=== PATIENT | female | born 1955 | race Caucasian/White ===

== ENCOUNTER → 2019-12-24 14:30 | Outpatient (CLI) | payer OTHER, SELFPAY ==
--- NOTE | ~2019-12-24 | XR_ITS ---
EXAMINATION: XR chest 2V EXAM DATE: 12/24/2019 15:02 INDICATION: Shortness of breath. TECHNIQUE: Frontal and lateral projections of the chest obtained and reviewed. Comparison is made to prior examination from 05/04/2017. FINDINGS: The lungs are clear. There are no pleural effusions. The cardiomediastinal silhouette is within normal limits. There is no pneumothorax suspected. The bones and soft tissues are unremarkab le. IMPRESSION: No acute cardiopulmonary findings. Reviewed, dictated and finalized at location A. EFFICIENT AIRCRAFT DESIGNER
== END ==
PROVIDERS: PCP Family Medicine; Visit Provider Family Medicine
DX: R06.02 Shortness of breath (principal)
CPT/HCPCS: 71046

== ENCOUNTER 2020-04-15 00:30 | Outpatient (CLI) | payer OTHER, SELFPAY ==
[2020-04-15 17:31] LABS: SARS-CoV-2 RNA PCR Negative
== END 2020-04-15 00:31 | disposition home or self-care (01) ==
LOC: ANHCOVIDDT 00:30
PROVIDERS: PCP Family Medicine; Visit Provider Internal Medicine Gastroenterology
DX: Z01.812 Encounter for preprocedural laboratory examination (principal); Z20.828 Contact with and (suspected) exposure to other viral communicable diseases
CPT/HCPCS: 87635; C9803; U0003

== ENCOUNTER 2020-04-17 00:52 | Day surgery (SDC) | payer OTHER, SELFPAY ==
[2020-02-04 14:06] VITALS: BMI 37.8
[2020-04-09 14:41] VITALS: BMI 35.2
[2020-04-17 12:37] VITALS: BP 134/60; PULSE 64; RESP 20; TEMP 35.9; O2SAT 97
--- NOTE | 2020-04-17 12:45 | WPDANESEPPF ---
Anes - Initial Pre Proc Eval Procedure: Operation Date: 04/17/20 13:30 Proposed Procedures p Esophagogastroduodenoscopy - Fredy Brian MD Date/Time: 04/17/20 12:45 Surgeon: Fredy Brian MD Pre Op Diagnosis: dysphagia Patient Data Age: 65 Gender: F Height: 5 ft 5 in Weight: 102.1 kg Last Vital Signs Temp 35.9 C L 04/17/20 12:37 Pulse 64 04/17/20 12:37 Resp 20 04/17/20 12:37 BP 134/60 04/17/20 12:37 Pulse Ox 97 04/17/20 12:37 Allergies Allergy/AdvReac Type Severity Reaction Status Date / Time tetracycline AdvReac Unknown sick Verified 04/17/20 12:34 Home Medications Medication Instructions Recorded Confirmed Type metoprolol tartrate 100 mg tablet 100 mg PO Q12H #180 tablet 11/26/19 02/04/20 Rx celecoxib 200 mg capsule 200 mg PO DAILY #90 cap 12/12/19 02/04/20 Rx lisinopril 10 mg PO HS 02/04/20 02/04/20 History hydrochlorothiazide 25 mg tablet 25 mg PO DAILY 03/17/20 04/09/20 History simvastatin [Zocor] See Rx Instructions .ROUTE .COMPLEX 04/09/20 04/09/20 History Patient hx anesthesia problems: none Family hx anesthesia problems: none PMFSH Past Medical History Medical History Chronic renal insufficiency, stage III (moderate) Colon cancer screening Essential hypertension LBBB (left bundle branch block) Migraine Mixed hyperlipidemia Normal colonoscopy Personal history of colonic polyps Transient cerebral ischemia Surgical History Surgical History History of partial hysterectomy Family History Family History Sibling Diabetes mellitus Family history of throat cancer Mother Cerebrovascular accident Other Family history of alcoholism Family history of coronary artery disease Family history of malignant neoplasm Family history of malignant neoplasm of breast in first degree relative Family history of malignant neoplasm of uterus Hypertension Social History Social History Smoking status: Never smoker Second hand tobacco smoke exposure: No Alcohol intake: never Gender identity (if verbalized by the patient): Female Anes - Eval Final PreProcedure Day of Procedure 04/17/20 12:45 Patient weight: obese Heart: regular rate and rhythm Lungs: clear to auscultation Airway: Mallampati scale class II Neurological: alert and oriented Last oral intake: >/= 8 hours ASA classification: III Emergent: no Anesthetic plan: proceed Anesthesia type and monitoring: general GIVS and standard monitoring Informed Consent: The patient's anesthetic plan and its attendant risks and benefits were discussed with the patient/family/POA. Questions were solicited and answers provided to the satisfaction of the patient/family/POA.
[2020-04-17] MEDS: LACTATED RINGERS 1,000 ML 150 ML IV CONT (12:54)
--- NOTE | 2020-04-17 14:15 | PM.HPGS ---
History of Present Illness History of Present Illness Consent: Risks, benefits, and alternatives have been discussed and questions answered. Patient agrees to proceed with procedure. Chief complaint: dysphagia Narrative: Lashonda Hendricks is a 65 year old female here with dysphagia Review of Systems Constitutional: Constitutional: Denies headache(s) and Denies weakness Eyes: Eyes: Denies blurry vision ENT: Reports Normal hearing present, Denies headache(s) and Denies neck pain Cardiovascular: Cardiovascular: Denies chest pain and Denies dyspnea Respiratory: Respiratory: Denies dyspnea Gastrointestinal: Gastrointestinal: Reports no additional gastrointestinal complaints Genitourinary: Genitourinary: Denies dysuria Musculoskeletal: Musculoskeletal: Denies neck pain Integumentary/Breasts: Skin/Breast: Denies dry skin Neurologic: Reports Normal hearing present, Denies headache(s) and Denies weakness Psychiatric: Psychiatric: Denies anxiety Endocrine: Endocrine: Denies change in body appearance Hematologic/Lymphatic: Hematologic/Lymphatic: Denies easy bleeding Allergic/Immunologic: Allergic/Immunologic: Denies urticaria PMFSH Past Medical History Medical History Chronic renal insufficiency, stage III (moderate) Colon cancer screening Essential hypertension LBBB (left bundle branch block) Migraine Mixed hyperlipidemia Normal colonoscopy Personal history of colonic polyps Transient cerebral ischemia Surgical History Surgical History History of partial hysterectomy Family History Family History Sibling Diabetes mellitus Family history of throat cancer Mother Cerebrovascular accident Other Family history of alcoholism Family history of coronary artery disease Family history of malignant neoplasm Family history of malignant neoplasm of breast in first degree relative Family history of malignant neoplasm of uterus Hypertension Social History Social History Smoking status: Never smoker Second hand tobacco smoke exposure: No Alcohol intake: never Gender identity (if verbalized by the patient): Female Meds Home Medications and Allergies Home Medications Medication Instructions Recorded Confirmed Type metoprolol tartrate 100 mg tablet 100 mg PO Q12H #180 tablet 11/26/19 04/17/20 Rx celecoxib 200 mg capsule 200 mg PO DAILY #90 cap 12/12/19 04/17/20 Rx lisinopril 10 mg PO HS 03/16/20 05/28/20 History hydrochlorothiazide 25 mg tablet 25 mg PO DAILY 03/17/20 04/17/20 History simvastatin [Zocor] See Rx Instructions .ROUTE .COMPLEX 04/09/20 04/17/20 History Allergies Allergy/AdvReac Type Severity Reaction Status Date / Time tetracycline AdvReac Unknown sick Verified 04/17/20 12:34 Vital Signs Vital Signs - 24 hr 04/17/20 12:37 Temperature 96.7 F L Pulse Rate 64 Respiratory Rate 20 Blood Pressure 134/60 Pulse Oximetry 97 Exam Const: General: comfortable and no acute distress HENMT: General nose exam: Normal nares present Eyes: General: appearance normal, both eyes and all related structures Neck: Neck: no JVD Resp: Auscultation: clear to auscultation bilaterally Cardio: Rate: regular rate Rhythm: regular rhythm GI: Inspection: non-distended GI Palp: Yes Soft to palpation Skin: General skin exam: normal color Neuro: General: gait normal Speech: normal speech Extrem: General: normal to inspection Psych: Mental Status: mental status grossly normal Assessment and Plan Assessment and plan (1) Dysphagia: Code(s): R13.10 - Dysphagia, unspecified Status: Acute Assessment and Plan: egd with possible dilation
[2020-04-17] MEDS: BENZOCAINE (*SP) 60 ML SPRAY CAN (HURRICAINE) 1 SPRAY MUCOUS MEM (14:32)
[2020-04-17 14:50] VITALS: BP 123/70; PULSE 65; RESP 20; O2SAT 97
[2020-04-17 15:00] VITALS: BP 127/76; PULSE 65; RESP 17; O2SAT 98
[2020-04-17 15:10] VITALS: BP 137/74; PULSE 61; RESP 18; O2SAT 99
== END 2020-04-17 15:17 | disposition home or self-care (01) ==
PROVIDERS: PCP Family Medicine; Visit Provider Internal Medicine Gastroenterology
PROC: 0DJ08ZZ Inspection of Upper Intestinal Tract, Via Natural or Artificial Opening Endoscopic (ICD-10-PCS; CPT 43235; principal; 2020-04-17 13:30)
DX: R13.10 Dysphagia, unspecified (principal); K29.50 Unspecified chronic gastritis without bleeding; K20.8 Other esophagitis; I12.9 Hypertensive chronic kidney disease with stage 1 through stage 4 chronic kidney disease, or unspecified chronic kidney disease; N18.3 Chronic kidney disease, stage 3 (moderate); I44.7 Left bundle-branch block, unspecified; E78.2 Mixed hyperlipidemia; E66.9 Obesity, unspecified; Z68.37 Body mass index [BMI] 37.0-37.9, adult
CPT/HCPCS: 43239; 43248; 88305; J2704; J7120

== ENCOUNTER 2023-07-21 09:47 | Outpatient (CLI) | payer BC, SELFPAY ==
[2023-07-21 11:00] LABS: Influenza A QL RT-PCR Negative (Negative); Influenza B QL RT-PCR Negative (Negative); RSV RNA, RT-PCR Negative (Negative); SARS-CoV-2 RNA PCR Positive (Negative)
== END 2023-07-21 09:48 | disposition home or self-care (01) ==
PROVIDERS: PCP Family Medicine; Visit Provider Physician Assistant
DX: U07.1 COVID-19 (principal)
CPT/HCPCS: 87637

== ENCOUNTER 2023-10-24 16:05 | Outpatient (CLI) | payer BC, SELFPAY ==
[2023-10-24 17:05] LABS: Influenza A QL RT-PCR Negative (Negative); Influenza B QL RT-PCR Negative (Negative); RSV RNA, RT-PCR Negative (Negative); SARS-CoV-2 RNA PCR Negative (Negative)
== END 2023-10-24 16:06 | disposition home or self-care (01) ==
LOC: ANHLAB 16:07
PROVIDERS: PCP Family Medicine; Visit Provider Family Medicine
DX: J39.9 Disease of upper respiratory tract, unspecified (principal); Z20.822 Contact with and (suspected) exposure to COVID-19
CPT/HCPCS: 87637

== ENCOUNTER 2024-08-01 10:45 | Outpatient (RCR) | payer MEDICARE, SELFPAY ==
[2024-07-03 13:35] VITALS: BMI 39.0
[2024-07-03 13:36] VITALS: BMI 39.0
[2024-08-01 10:47] VITALS: BMI 38.0
[2024-08-01 10:54] VITALS: BMI 38.0
== END 2024-09-19 14:13 | disposition home or self-care (01) ==
LOC: ANHDMC 10:45
PROVIDERS: PCP Family Medicine; Visit Provider Family Medicine
DX: E11.9 Type 2 diabetes mellitus without complications (principal); Z71.3 Dietary counseling and surveillance
CPT/HCPCS: 97802; 97803

== ENCOUNTER 2024-10-03 10:34 | Outpatient (RCR) | payer MEDICARE, SELFPAY ==
[2024-10-03 10:45] VITALS: BMI 36.6
== END 2024-12-17 09:53 | disposition home or self-care (01) ==
LOC: ANHDMC 10:34
PROVIDERS: PCP Family Medicine; Visit Provider Family Medicine
DX: E11.9 Type 2 diabetes mellitus without complications (principal); Z71.3 Dietary counseling and surveillance
CPT/HCPCS: 97803

== ENCOUNTER 2024-11-01 11:58 | Outpatient (CLI) | payer MEDICARE, SELFPAY ==
--- NOTE | ~2024-11-01 | MR_ITS ---
EXAMINATION: MR shoulder RT wo con DATE: 11/01/2024 13:02 INDICATION: Right shoulder pain. TECHNIQUE: Magnetic resonance imaging (MRI) of the right shoulder was performed without intravenous c ontrast. Sequences included axial PD-weighted FS FSE, coronal oblique PD-weighted FS FSE and T2-weigh isabela FS FSE, and sagittal oblique T2-weighted FS FSE and T1-weighted FSE. COMPARISON: None. FINDINGS: Coracoacromial arch: The acromion undersurface is flat in morphology (type I). There is severe acromioclavicular joint ost eoarthritis. Subacromial spurring is noted. There is moderate subacromial/subdeltoid bursitis. Rotator cuff: There is a bursal-sided partial-thickness tear of supraspinatus tendon measuring 6 mm anterior to pos terior by 3 mm proximal to distal by 60% tendon thickness. There is mild infraspinatus tendinopathy. Teres minor tendon is normal. There is mild subscapularis tendinopathy. There is severe fatty atrophy of teres minor muscle belly. Biceps tendon and glenoid labrum: Biceps tendon is in bicipital groove. There is mild intra-articular biceps tendinopathy. There is deg eneration of superior glenoid labrum without well-defined tear. Fluid: There is a small glenohumeral joint effusion. Bones/cartilage: The glenoid cartilage is normal. Humeral head cartilage is normal. IMPRESSION: 1. Bursal-sided partial-thickness tear of supraspinatus tendon. 2. Severe acromioclavicular joint osteoarthritis. 3. Moderate subacromial/subdeltoid bursitis. 4. Mild intra-articular biceps tendinopathy. 5. Small glenohumeral joint effusion. 6. Severe fatty atrophy of teres minor muscle belly, consistent with quadrilateral space syndrome. Reviewed, dictated and finalized at location A. INE PACKAGING TECHNICIAN IMPRESSION: 1. Bursal-sided partial-thickness tear of supraspinatus tendon. 2. Severe acromioclavicular joint osteoarthritis. 3. Moderate subacromial/subdeltoid bursitis. 4. Mild intra-articular biceps tendinopathy. 5. Small glenohumeral joint effusion. 6. Severe fatty atrophy of teres minor muscle belly, consistent with quadrilate ral space syndrome.
== END 2024-11-01 11:59 | disposition home or self-care (01) ==
LOC: MICIMG 11:58
PROVIDERS: PCP Family Medicine; Visit Provider Family Medicine
DX: M75.111 Incomplete rotator cuff tear or rupture of right shoulder, not specified as traumatic (principal); M19.011 Primary osteoarthritis, right shoulder; M75.51 Bursitis of right shoulder; M75.21 Bicipital tendinitis, right shoulder; M25.411 Effusion, right shoulder; M62.511 Muscle wasting and atrophy, not elsewhere classified, right shoulder
CPT/HCPCS: 73221

== ENCOUNTER 2025-02-26 14:38 | Outpatient (RCR) | payer MEDICARE, SELFPAY ==
[2025-02-26 14:45] VITALS: BMI 35.2
[2025-02-26 14:47] VITALS: BMI 35.2
== END 2025-05-20 09:03 | disposition home or self-care (01) ==
LOC: ANHDMC 14:38
PROVIDERS: PCP Family Medicine; Visit Provider Family Medicine
DX: E11.9 Type 2 diabetes mellitus without complications (principal); Z71.3 Dietary counseling and surveillance
CPT/HCPCS: 97803

== ENCOUNTER 2025-04-03 10:54 | Outpatient (CLI) | payer MEDICARE, SELFPAY ==
--- NOTE | 2025-04-03 11:03 | ECG_ITS ---
Test Date: 2025-04-03 11:15:38 Measurements Intervals [place] Rate: 58 P: 75 ME: 216 QRS: -44 QRSD: 157 T: 68 QT: 462 QTc: 456 Interpretive Statements SINUS BRADYCARDIA WITH FIRST DEGREE AV BLOCK MARKED LEFT AXIS DEVIATION [QRS AXIS < -30] LEFT BUNDLE BRANCH BLOCK [120+ ms QRS DURATION, 80+ ms Q/S IN V1/V2, 85+ ms R IN I/aVL/V5/V6] WARNING: DATA QUALITY MAY AFFECT INTERPRETATION No previous ECG available for comparison Electronically Signed On 04-03-2025 12:00:32 CDT by David Salcedo M.D.
--- OUTSIDE RECORDS SUMMARY | 2025-04-03 11:14 | XMS_ITS | Clinical Summary ---
Author Organization [facility] Address [address] [place] [address] Care Team Providers Care Commercial Loan Reviewer Name Role Phone Haley Stokes MD Primary Care Provider [phone] Medications No known medications Encounters Date Type Department Care Team Description 01/08/2025 External Device Data [facility] ABSTRACTION Provider, Abstract from Last 3 Months Family History Medical History Relation Name Comments Breast Cancer Mother 70s Relation Name Status Comments Mother Social History Tobacco Use Types Packs/Day Years Used Date Smoking Tobacco: Never Assessed Comments Unknown Sex and Gender Information Value Date Recorded Sex Assigned at Not on file Legal Sex Female 9:56 PM CDT Gender Identity Not on file Sexual Orientation Not on file Last Filed Vital Signs Vital Sign Reading Time Taken Comments Blood Pressure 120/68 01/18/2024 2:13 PM MERCHANDISING COORDINATOR Pulse 71 01/18/2024 2:13 PM MERCHANDISING COORDINATOR Temperature - - Respiratory Rate 18 01/18/2024 2:13 PM MERCHANDISING COORDINATOR Oxygen Saturation 97% 01/18/2024 2:13 PM MERCHANDISING COORDINATOR Inhaled Oxygen Concentration - - Weight - - Height - - Body Mass Index - - Plan of Treatment Health Maintenance Due Date Last Done Comments DTAP/TDAP/TD VACCINES (1 - Tdap) 1976 FIT-DNA Q 3 years 2002 FIT/FOBT Q 1 year 2002 Flex Sig/CT Colonography Q 5 years 2002 PNEUMOCOCCAL VACCINE 50+ YEA RS (1 of 1 - PCV) 2007 ZOSTER VACCINE (1 of 2) 2007 OSTEOPOROSIS SCREENING 2022 COLORECTAL SCREENING 11/20/2022 11/20/2012 Colorectal Cancer Screening 11/20/2022 INFLUENZA VACCINE (#1) 2024 BREAST CANCER SCREENING 01/13/2025 01/13/20 24, 12/15/2023, 10/12/2021, Additional history exists RSV VACCINE (60+ or ) (1 - 1-dose 75+ series) 2032 Medical Devices Implanted Type Area Shoe Parts Molder Device Identifier Shelf Expiration Date Model / Serial / Lot Clip-01/18/2024 Implanted:Qty: 1 on 01/18/2024 by Darryl Peña MD Clip Right: Breast 11/17/2026 [id number] / / [id number] Description:ribbon marker Procedures Procedure Name Priority Date/Time Associated Diagnosis Comments MAMMO 3D NEGRITO DIAGNOSTIC BILAT W OR WO CAD Routine 01/13/2024 2:10 PM MERCHANDISING COORDINATOR Abnormal mammogram from Last 3 Months or Most Recently Relevant to Health Maintenance Results * (ABNORMAL) MAMMO 3D NEGRITO DIAGNOSTIC BILAT W OR WO CAD (01/13/2024 2:10 PM MERCHANDISING COORDINATOR) Anatomical Region Laterality Modality Breast Bilateral Mammography 01/13/2024 2:10 PM MERCHANDISING COORDINATOR Impressions 01/13/2024 3:36 PM MERCHANDISING COORDINATOR IMPRESSION: Small cysts in the left breast at 6:00. Hypoechoic area that appears to be connected to a duct in the right breast at 12:00. RECOMMENDATIONS: Ultrasound-guided aspiration with possible biopsy right breast. DICTATION LOCATION: [facility], [place], [facility] Narrative 01/13/2024 3:36 PM MERCHANDISING COORDINATOR EXAM: BILATERAL DIAGNOSTIC FULL-FIELD DIGITAL MAMMOGRAPHY WITH CAD WITH 3D TOMOSYNTHESIS AND BILATERAL FOCUSED ULTRASOUND DATE: 01/13/2024 2:10 PM HISTORY: Abnormal screening mammogram. TECHNIQUE: Spot tomographic and lateral imaging both breasts with focused ultrasound. COMPARISON: 2023, 2020, 2018 BREAST COMPOSITION: There are scattered areas of fibroglandular density. FINDINGS: With additional spot tomographic imaging on the right, a fairly well-circumscribed mass is seen on the mediolateral projection. Focused ultrasound shows a hypoechoic area that is at 12:00 and appears to be connected to a duct. There is no definite internal blood flow. Possibility of mass growing inside the duct needs to be excluded. In the left breast, well-circumscribed masses are present that with real-time imaging are felt to be small cysts. No solid mass. OVERALL FINAL ASSESSMENT: BI-RADS CATEGORY 4A: Suspicious Findings (Low suspicion). Procedure Note Darryl Peña MD - 01/13/2024 EXAM: BILATERAL DIAGNOSTIC FULL-FIELD DIGITAL MAMMOGRAPHY WITH CAD WITH 3D TOMOSYNTHESIS AND BILATERAL FOCUSED ULTRASOUND DATE: 01/13/2024 2:10 PM HISTORY: Abnormal screening mammogram. TECHNIQUE: Spot tomographic and lateral imaging both breasts with focused ultrasound. COMPARISON: 2023, 2020, 2018 BREAST COMPOSITION: There are scattered areas of fibroglandular density. FINDINGS: With additional spot tomographic imaging on the right, a fairly well-circumscribed mass is seen on the mediolateral projection. Focused ultrasound shows a hypoechoic area that is at 12:00 and appears to be connected to a duct. There is no definite internal blood flow. Possibility of mass growing inside the duct needs to be excluded. In the left breast, well-circumscribed masses are present that with real-time imaging are felt to be small cysts. No solid mass. OVERALL FINAL ASSESSMENT: BI-RADS CATEGORY 4A: Suspicious Findings (Low suspicion). IMPRESSION: Small cysts in the left breast at 6:00. Hypoechoic area that appears to be connected to a duct in the right breast at 12:00. RECOMMENDATIONS: Ultrasound-guided aspiration with possible biopsy right breast. DICTATION LOCATION: [facility], [place], [facility] Haley Stokes MD MAMMO ORDERABLES Final Result from Last 3 Months or Most Recently Relevant to Health Maintenance Insurance [employer] PPO [facility] Care Teams Commercial Loan Reviewer Relationship Specialty Start Date End Date Haley Stokes MD [address] [place] [id number] PCP - General Family Practice 02/02/19
--- OUTSIDE RECORDS SUMMARY | 2025-04-03 11:14 | XMS_ITS | Clinical Summary ---
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 Gender Identity Not on file Sexual Orientation Not on file Obstetrics History Last Filed Vital Signs Vital Sign Reading Time Taken Comments Blood Pressure 100/68 05/13/2017 11:21 AM CDT Pulse - - Temperature - - Respiratory Rate - - Oxygen Saturation - - Inhaled Oxygen Concentration - - Weight 99.8 kg (220 lb) 05/13/2017 11:21 AM CDT Height 165.1 cm (5' 5 ) 05/13/2017 11:21 AM CDT Body Mass Index 36.61 05/13/2017 11:21 AM CDT Plan of Treatment Not on file Insurance [place] [employer] [place] Care Teams Plate Glass Grinder Relationship Specialty Start Date End Date Haley Stokes MD PCP - General 02/14/13
--- OUTSIDE RECORDS SUMMARY | 2025-04-03 11:14 | XMS_ITS | Referral Summary ---
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
[2025-04-03 13:10] LABS: Anion Gap 10 mmol/L (4-12); Blood Urea Nitrogen 31 mg/dL (7-17); Calcium 9.6 mg/dL (8.4-10.2); Carbon Dioxide 31 mmol/L (22-30); Chloride 100 mmol/L (98-107); Estimated Glomerular Filt Rate 52; Glucose 92 mg/dL (65-110); Potassium 3.4 mmol/L (3.4-5.0); Sodium 141 mmol/L (137-145)
[2025-04-03 13:11] LABS: Partial Thromboplastin Time 28.1 Seconds (22.3-36.8); Prothrombin Time 13.2 Seconds (11.1-14.7)
== END 2025-04-03 10:55 | disposition home or self-care (01) ==
PROVIDERS: Anesthesiology; PCP Family Medicine; Visit Provider Orthopaedic Surgery
DX: R94.31 Abnormal electrocardiogram [ECG] [EKG] (principal); I12.9 Hypertensive chronic kidney disease with stage 1 through stage 4 chronic kidney disease, or unspecified chronic kidney disease; N18.30 Chronic kidney disease, stage 3 unspecified; Z51.81 Encounter for therapeutic drug level monitoring
CPT/HCPCS: 36415; 80048; 85610; 85730; 93005

== ENCOUNTER 2025-05-22 08:43 | Outpatient (CLI) | payer MEDICARE, SELFPAY ==
--- NOTE | ~2025-05-22 | NM_ITS ---
EXAMINATION: NM marisela stress w perfusion DATE: 05/22/2025 13:09 INDICATION: Preoperative evaluation TECHNIQUE: Rest images were obtained following intravenous administration of 10.4 mCi Tc99m tetrofosm in (Myoview). The patient was infused intravenously with Lexiscan (Regadenoson). Then, 32.3 mCi Tc99m tetrofosmin (Myoview) was administered intravenously, and stress images were obtained, initially in the supine position with repeat post stress images obtained in the prone position. Data was reconstru cted into short axis and horizontal and vertical long axis SPECT images. Gated SPECT images were also obtained. COMPARISON: None. FINDINGS: There is a fixed mild perfusion defect consistent with infarct involving the apical septal and anteroseptal segments and small portion of the mid inferoseptal segments. No definitive reversibl e ischemia. There is normal left ventricular chamber size, wall motion and ejection fraction. Left v entricular ejection fraction measures >70%. IMPRESSION: 1. Mild infarct involving the apical septal, mid anteroseptal and small portion of the mid inferior s eptal segments. No definitive reversible ischemia. 2. Left ventricular ejection fraction measuring >70%. Reviewed, dictated and finalized at location A. IMPRESSION: 1. Mild infarct involving the apical septal, mid anteroseptal and small portion of the mid inferior septal segments. No definitive reversible ischemia. 2. Left ventricular ejection fraction measuring >70%.
--- OUTSIDE RECORDS SUMMARY | 2025-05-22 08:47 | XMS_ITS | Clinical Summary ---
Author Organization [facility] [place] [address] Address [address] [place] [address] Care Team Providers Care Judge'S Clerk Name Role Phone Haley Stokes MD Primary Care Provider [phone] Social History Tobacco Use Types Packs/Day Years Used Date Smoking Tobacco: Never Assessed Alcohol Use Standard Drinks/Week Comments Yes 0 (1 standard drink = 0.6 oz pur e alcohol) Comments Unknown Sex and Gender Information Value Date Recorded Sex Assigned at Not on file Legal Sex Female 1:[address] Gender Identity Not on file Sexual Orientation Not on file Obstetrics History Last Filed Vital Signs Vital Sign Reading Time Taken Comments Blood Pressure 100/68 05/13/2017 11:21 AM CDT Pulse - - Temperature - - Respiratory Rate - - Oxygen Saturation - - Inhaled Oxygen Concentration - - Weight 99.8 kg (220 lb) 05/13/2017 11:21 AM CDT Height 165.1 cm (5' 5) 05/13/2017 11:21 AM CDT Body Mass Index 36.61 05/13/2017 11:21 AM CDT Plan of Treatment Not on file Insurance [employer] [place] Care Teams Judge'S Clerk Relationship Specialty Start Date End Date Haley Stokes MD PCP - General 02/14/13
--- OUTSIDE RECORDS SUMMARY | 2025-05-22 08:47 | XMS_ITS | Clinical Summary ---
Author Organization [facility] Address [address] [place] [address] Care Team Providers Care Drink Waiter Name Role Phone Haley Stokes MD Primary Care Provider [phone] Medications No known medications Family History Medical History Relation Name Comments [...] Comments Blood Pressure 120/68 01/18/2024 2:13 PM [facility] Pulse 71 01/18/2024 2:13 PM [facility] Temperature - - Respiratory Rate 18 01/18/2024 2:13 PM [facility] Oxygen Saturation 97% 01/18/2024 2:13 PM [facility] Inhaled Oxygen Concentration - - Weight - [...] SCREENING 11/20/2022 11/20/2012 Colorectal Cancer Screening 11/20/2022 BREAST CANCER SCREENING 01/13/2025 01/13/20 24, 12/15/2023, 10/12/2021, Additional history exists INFLUENZA VACCINE (#1) 2025 RSV VACCINE (60+ or ) (1 - 1-dose 75+ series) 2032 Medical Devices Implanted Type Area Executive Director Sheltered Workshop Device Identifier Shelf Expiration Date Model / Serial / Lot Clip-01/18/2024 Implanted:Qty: 1 on 01/18/2024 by Darryl Peña MD Clip Right: Breast 11/17/2026 [id number] / / [id number] Description:ribbon marker Procedures Procedure Name Priority Date/Time Associated Diagnosis Comments MAMMO 3D NEGRITO DIAGNOSTIC BILAT W OR WO CAD Routine 01/13/2024 2:10 PM [facility] Abnormal mammogram from Last 3 Months or Most Recently Relevant to Health Maintenance Results * (ABNORMAL) MAMMO 3D NEGRITO DIAGNOSTIC BILAT W OR WO CAD (01/13/2024 2:10 PM [facility]) Anatomical Region Laterality Modality Breast Bilateral Mammography 01/13/2024 2:10 PM [facility] Impressions 01/13/2024 3:36 PM [facility] IMPRESSION: Small cysts in the left breast at 6:00. Hypoechoic area that appears to be connected to a duct in the right breast at 12:00. RECOMMENDATIONS: Ultrasound-guided aspiration with possible biopsy right breast. DICTATION LOCATION: [facility] Narrative 01/13/2024 3:36 PM [facility]PEDOMAN[facility]S MATE EXAM: BILATERAL DIAGNOSTIC FULL-FIELD DIGITAL MAMMOGRAPHY WITH [...] with possible biopsy right breast. DICTATION LOCATION: [facility] us Haley Stokes MD MAMMO ORDERABLES Final Result from Last 3 Months or Most Recently Relevant to Health Maintenance Insurance [employer] P[id number] Care Teams Drink Waiter Relationship Specialty Start Date End Date Haley Stokes MD [address] [place] [address] PCP - General Family Practice 02/02/19
--- OUTSIDE RECORDS SUMMARY | 2025-05-22 08:47 | XMS_ITS | Data Portability ---
Author Organization [facility], Main Office Address [address] [place] [address] Assessment No assessment recorded. Plan of Treatment Reminders Order Date Submit Date Provider Last Modified By Organization Details Last Modified Time Details Appointments None record ed. Lab None record ed. Referral None record ed. Procedures None record ed. Surgeries None record ed. Imaging None record ed. Medication Orders None record ed. Patient TargetsNo targets recorded. Patient Instructions Encounter Date Encounter Id Patient Instructions Last Modified By Organization Details Last Modified Time 01/05/2023 [id number] She will follow up with me only as needed. On today's visit I spent a total of 40 minutes prepping for her visit (reviewing shared records), [id number] with her and documenting. [email or web address] Not available 02/11/2023 16:43:53 Reason for Referral None Reported. Problems Name Problem SNOMED Code Status Onset Date Resolution Date Notes Provider Name and Address Organization Details Recorded Time Hyperlipid emia 00127562 Active 2022 Poornima Lange MD [address] [place] [address],[address], [address] [place] [address] [facility] 3 16:42:17 Essential hypertensi on 84215738 Active 2022 Poornima Lange MD [address] [place] [address],[facility] [address], [place], [address] [place] [address] [facility] 3 16:42:30 Screening for malignant neoplasm of colon Active 2022 Poornima Lange MD [address] [place] [address],[address], [place], [address], [facility] [place] 3 16:42:41 External hemorrhoid s 81898797 Active 2022 Poornima Lange MD [address] [place] [address],[address], [place], [address], [facility] [place] 3 16:42:55 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 Procedures Surgical History Date Name Laterality Status Provider Name and Address Organization Details Recorded Time 01/05/20 Anoscopy completed Poornima Lange MD [address] [place] [address],[address], [place], [address], [facility] 02/11/2023 16:33:57 02/20/20 19 Date of Last Mammogram completed basia wilson [facility] 01/05/2023 13:39:05 11/21/19 13 Colonoscopy completed Poornima Lange MD [address] [place] [address],[address], [place], [address], [facility] 02/11/2023 16:29:11 11/21/18 91 combined anteroposterior colporrhaphy completed Poornima Lange MD [address] [place] [address],[address], [place], [address], [facility] [place] 02/11/2023 16:29:43 11/21/18 91 total hysterectomy via vaginal approach completed Poornima Lange MD [address] [facility],[address], [place], [address], [facility] [place] 02/11/2023 16:31:01 Imaging Results None recorded. Procedure Notes None recorded. Medical Equipment None Reported. Allergies Allergen ID Allergen Name Allergen Category Reaction Reaction Severity Criticality Documentation Date Start Date Code Code System Note Provider Name and Address Organization Details Recorded Time 7387 tetracycl ine medicatio n Not available Not available Not available 01/05/2023 65986 RxNorm basianeetu wilson [facility], [facility] [place] 13:09:23 Medications Name Sig Start Date Stop Date Status Note LastModified by Organization Details LastModified Time celecoxib 200 mg capsule active Not Available Not Available Not Available ofloxacin 0.3 % eye drops 1 DROP 3 TIMES PER DAY STARTING 2 DAYS PRIOR TO SURGERY, CONTINUIN G FOR 1 WEEK AFTER SURGERY. 02/11 completed Not Available Not Available Not Available metoprolol tartrate 100 mg tablet active Not Available Not Available Not Available cephalexin 250 mg capsule TAKE 1 CAPSULE BY MOUTH EVERY 8 HOURS FOR 7 DAYS 02/11 completed Not Available Not Available Not Available ketorolac 0.5 % eye drops USE 1 DROP 4 TIMES PER DAY STARTING 2 DAYS PRIOR TO SURGERY, CONTINUIN G FOR 2 WEEKS AFTER SURGERY 02/11 completed Not Available Not Available Not Available prednisolon e acetate 1 % eye drops,suspe nsion 1 DROP 3 TIMES PER DAY STARTING AFTER SURGERY, CONTINUIN G FOR 3 WEEKS 02/11 completed Not Available Not Available Not Available simvastatin 20 mg tablet active Not Available Not Available Not Available lisinopril 10 mg tablet active Not Available Not Available Not Available hydrochloro thiazide 25 mg tablet active Not Available Not Available No t Available albuterol sulfate HFA 90 mcg/actuati on aerosol inhaler INHALE 1 PUFFS BY MOUTH EVERY 4 HOURS NEEDED FOR FOR SHORTNESS OF BREATH OR WHEEZING active Not Available Not Available No t Available Pramosone 2.5 %-1 % lotion APPLY TOPICALLY THREE TIMES A DAY ALLOW AT LEAST 3 HOURS BETWEEN APPLICATI ONS active Not Available Not Available No t Available Vitals None Recorded Social History Question Answer Notes LastModified by Organizat ion Details LastModified Time Do You Have An Advance Directive? Yes Information not available 01/05/2023 Alcohol Use Yes Information n ot available 01/05/2023 Alcohol Amount Occasional Informatio n not available 01/05/2023 Caffeine Use Yes Information not available 01/05/2023 Caffeine Type Coffee-tea Information not available 01/05/2023 Caffeine Amount 1-2 Day Informati on not available 01/05/2023 Illicit Drug Use No Information not available 01/05/2023 What Was The Date Of Your Most Recent Tobacco Screening? 01/05/2023 Information not available 01/05/2023 Sex: Female Functional Status Question Answer Note LastModified by Organization D etails LastModified Time Do you or have you ever used any other forms of tobacco or nicotine? No Information not available 01/05/2023 Mental Status None recorded. Family History Relationship Description Onset Age of this Age Resolved Age Notes LastModified by Organization Details LastModified Time Father Primary malignant neoplasm of pharynx 40 Not available 2022 13:34:26 Father Hypertensive disorder 60 Not available 2022 13:34:38 Father Cerebrovascu lar accident 65 Not available 13:34:58 Mother Malignant neoplasm of female breast 65 Not available 2022 13:34:22 Mother Cerebrovascu lar accident 72 72 Not available 13:34:58 Mother Crohn's disease 50 Not available 2022 13:35:44 Sister Diabetes mellitus 40 Not available 2022 13:35:11 Medical History Condition Response Headaches/Migraines Y High Cholesterol Y Arthritis/Gout Y Cataracts Y Hypertension Y Gynecological History Statement/Question Response Number of Pregnancies? 1 Tear or Laceration During Delivery? Y Could You Be or Are You Currently Pregna nt? N Number of Vaginal Deliveries? 1 Date of Last Mammogram 02/19/2019 Accidental Bowel Leakage Post Delivery? N Episiotomy During Delivery? N Date of Last Pap Smear Obstetrics History GPAL:G 0 P 0 0 0 0 Past Encounters Encounter ID Performer Location Encounter Start Date Encounter Closed Date Diagnosis/Indication Diagnosis SNOMED-CT Code Diagnosis ICD10 Code Diagnosis Note [id number] Poornima Lange MD Main Office [address] [place] [address] 01/05/2023 12:25:07 01/05/2023 13:54:04 Pile easily reducible 769100208 K64.1 I discussed hemorrhoid s in general with her as well as the treatment options. She now understand s that any non-surgic al procedure (infrared coagulatio n or banding) would be done on her internal hemorrhoid s. I d/w her that her internals are not large enough to treat and given that they lie low in the anal canal it would be difficult to treat them without hurting her. Female pel kirsten floor dysfunction 044246559 M99.05 I d/w her that she has very poor resting muscle tone with a weak squeeze. I offered a referral to physical therapy but she declined. I offered a referral to a C&R surgeon but she declined. I advised she should do Kegel exercises as often and best as she can. She has already had an A&P repair in 1990. She of course needs to be eating a high fiber diet and drinking plenty of water. I advised that she start very low dose psyllium (start with 1/4 tsp daily) and SLOWLY increase to try to bulk up her BM's. I advised she is shooting for daily BM's that are soft ([place] Scale type 4). Once she figures out what dose works for her she should take it daily and forever. External hemorrhoids 239 [address] K64.4 She now understand s the only way to directly treat external hemorrhoid s/skin tags would be with a surgical excision. She does not wish to pursue this and her hemorrhoid s are not bad enough to warrant surgery. I advised she should consistent ly use the moist baby wipes. She can use the prescripti on cream if she needs to for discomfort . Screening for malignant neoplasm of colon 446934489 Z12.11 She is aware that she is due for a c-scope and states she will get this scheduled through her PCP. Essential hypertension 93211183 I10 She takes her medication and follows routinely with her PCP. Hyperlipidemia 58327166 E78.5 She takes her medication and follows routinely with her PCP. Health Concerns Section Related Observation LastModified by Organization Detai ls LastModified Time None Recorded Concern Status LastModified by Organization Details LastModified Time None Recorded Advance Directives Directive Y: Payers Insurance Date Sequence Insurance Name Policy Number Policy Costello Covered Member ID Costello Member ID Guarantor Name 02/11/2023 1 [place] [id number] Neetu Hendricks [id number] Lashonda Hendricks Notes Date Note Type Note Provider Name and Address Organization Details Recorded Time 01/05/2023 text/html This is a pleasa nt 68 year old woman who has had minor symptoms from her hemorrhoids on and off for many years. She states these have never bothered her to the point that she would have ever sought treatment. In early November she had an episode of sudden external anal pain and swelling. This lasted for about 4 - 5 weeks but she has been much better for the last 1 - 2 weeks. She still has a little more discomfort than is usual for her. Bleeding: She has had some BRB on the wipe with a BM during this recent flare. She has never had heavy bleeding or leakage of blood in between BM's. Pain: Only as above. She has never had a similar painful flare. Itching: She had some itching and irritation during the flare. This has improved. Discharge: It is always hard to get clean after BM's because of swelling and irritation. She tries to consistently use the moist wipes. She does not have difficulty staying clean - she does not have to re-wipe. She has no drainage. Prolapse: Not that she feels or has to manually reduce. External swelling: Only as above. Discomfort: She does have persistent pressure that is worse than prior to this recent flare. Previous Hemorrhoid Treatment: She was seen at her PCP's office on 11/30/22 and given a prescription for pramoxine/hydrocor tisone cream and this did help. She has never previously had a prescription for her hemorrhoids. She has never had a procedure done. Previous Lower GI Endoscopy: She states she has had 2 negative c-scopes and her last one was about 10 years ago. She states she is going to get a repeat done soon. I do not have access to her c-scope reports. Bowel Habits: She has had long standing every 1 - 2 day BM's that are soft to somewhat loose with just her dietary fiber. She did try taking some fiber gummies with this recent flare but it caused a significant amount of gas and bloating so she stopped them. Poornima Lange MD [address] [facility],[address], [place], [address], [facility] 02/11/2023 16:46:27 OBGyn Episode No OBEpisode recorded.
--- OUTSIDE RECORDS SUMMARY | 2025-05-22 08:47 | XMS_ITS | Referral Summary ---
Author Organization [facility] [address] Address [address] [place] [address] Care Team Providers Care Layboy Operator Name Role Phone Haley Stokes MD Primary Care Provider [phone] Social History Tobacco Use Types Packs/Day Years Used Date Smoking Tobacco: Never Assessed Alcohol Use Standard Drinks/Week Comments Yes 0 (1 standard drink = 0.6 oz pur e alcohol) Comments Unknown Sex and Gender Information Value Date Recorded Sex Assigned at Not on file Legal Sex Female 1:26 AM DIRECTOR GRAPHICS Gender Identity Not on file Sexual Orientation [...] Plan of Treatment Not on file Insurance [employer] original products [place] Care Teams Layboy Operator Relationship Specialty Start Date End Date Haley Stokes MD PCP - General 02/14/13
--- NOTE | 2025-05-22 08:48 | EST_ITS ---
Patient Info Name: Lashonda Hendricks Age: 70 years : 1955 Gender: Female Ht: 65 in Wt: 197 lbs BSA: 2.06 m2 HR: 69 bpm BP: 139 / 78 mmHg Exam Date: 05/22/2025 8:48 AM Patient Status: O Admit Date: 05/22/2025 Exam Type: CA stress marisela w NM A regadenoson stress test was performed. Staff Referring Physician: Osmany Butler DO Attending Provider: Osmany Butler DO Exercise Technologist: Helen Snow Summary 1. 1. Inconclusive lexiscan stress test for ischemic ST changes by ECG criteria due to baseline LBBB. 2. 2. Stable hemodynamics throughout the test. 3. 3. Nuclear scan to follow and will be reported separately. Please correlate with it. 4. 4. Patient informed of the above results. Protocol: Lexiscan Stress ECG Details Stage: REST Duration (min): 0 min : 57 sec HR (bpm): 70 SBP (mmHg): 139 DBP (mmHg): 78 Stage: REST Duration (min): 10 min : 9 sec HR (bpm): 71 SBP (mmHg): 139 DBP (mmHg): 78 Stage: STAGE 1 Duration (min): 0 min : 59 sec HR (bpm): 94 SBP (mmHg): 133 DBP (mmHg): 64 Stage: RECOVERY Duration (min): 1 min : 0 sec HR (bpm): 100 SBP (mmHg): 133 DBP (mmHg): 64 Stage: RECOVERY Duration (min): 2 min : 0 sec HR (bpm): 101 SBP (mmHg): 133 DBP (mmHg): 64 Stage: RECOVERY Duration (min): 3 min : 0 sec HR (bpm): 93 SBP (mmHg): 142 DBP (mmHg): 64 Stage: RECOVERY Duration (min): 4 min : 0 sec HR (bpm): 88 SBP (mmHg): 142 DBP (mmHg): 64 Stage: RECOVERY Duration (min): 5 min : 0 sec HR (bpm): 84 SBP (mmHg): 138 DBP (mmHg): 62 Stage: RECOVERY Duration (min): 5 min : 2 sec HR (bpm): 85 SBP (mmHg): 138 DBP (mmHg): 62 Rest HR: 71 bpm Peak HR: 101 bpm Rest Sys BP: 139 mmHg Peak Sys BP: 142 mmHg Max Pred HR: 152 bpm % Max Pred HR: 66 % Target HR: 129 bpm Max RPP: 14,342 bpm*mmHg Termination Reason: Completed protocol Cardiac Symptoms: Shortness of breath, Headache, dizziness Total Time: 1 min : 0 sec Rest Mendoza BP: 78 mmHg Peak Mendoza BP: 64 mmHg Total Dose: 0.4 mg Resting ECG Sinus rhythm, LBBB. Stress ECG No ST changes. Arrhythmias None. Report Signatures
--- NOTE | 2025-05-22 09:12 | ECHO_ITS ---
Patient Info Name: Lashonda Hendricks Age: 70 years : 1955 Gender: Female Ht: 65 in Wt: 197 lbs BSA: 2.06 m2 HR: 58 bpm BP: 145 / 88 mmHg Technical Quality: Good Exam Date: 05/22/2025 9:18 AM Patient Status: O Admit Date: 05/22/2025 Exam Type: CA echo dop color flow w con Complete two-dimensional, color flow and Doppler transthoracic echocardiogram is performed with contrast to opacify the left ventricle and to improve the deliniation of the left ventricle endocardial borders. Staff Referring Physician: Osmany Butler DO Spanner Operator: Erica Looney Attending Provider: Osmany Butler DO Contrast/Agitated Saline Contrast/Ag. Saline: Definity Amount: 2.00 ml Administered By: Erica Looney Existing IV Access: Yes IV Access Condition: patent with no signs of infiltration Summary 1. Definity contrast administered improved wall motion interpretation. 2. Left ventricular chamber dimension is normal. 3. Left ventricular systolic function is normal, estimated at 55-60. 4. Left ventricular septal wall motion is abnormal with septal motion related to bundle branch block. 5. The left ventricular diastolic function is grade I diastolic dysfunction. 6. There is mild aortic valve sclerosis. 7. There is mild to moderate mitral valve regurgitation. 8. There is trace tricuspid valve regurgitation. 9. No pulmonary hypertension, estimated pulmonary arterial systolic pressure is 25 mmHg. Left Ventricle Definity contrast administered improved wall motion interpretation. Left ventricular chamber dimension is normal. Left ventricular systolic function is normal, estimated at 55-60. Left ventricular septal wall motion is abnormal with septal motion related to bundle branch block. The left ventricular diastolic function is grade I diastolic dysfunction. E/e' 11 is mildly elevated. Right Ventricle Right ventricular chamber dimension is normal. Right ventricular systolic function is normal. Left Atria Left atrial chamber dimension is normal. Right Atria Right atrial chamber dimension is normal. Aortic Valve The aortic valve is trileaflet. There is mild aortic valve sclerosis. There is no aortic valve stenosis. There is no aortic valve regurgitation. Pulmonic Valve There is no pulmonic regurgitation. Mitral Valve There is no mitral valve stenosis. There is mild to moderate mitral valve regurgitation. Tricuspid Valve There is trace tricuspid valve regurgitation. No pulmonary hypertension, estimated pulmonary arterial systolic pressure is 25 mmHg. Pericardium/Pleural There is no pericardial effusion. Inferior Vena Cava Normal inferior vena cava with >50% collapse upon inspiration consistent with normal right atrial pressure, 5 mmHg. Aorta The aortic root size at the sinus of Valsalva is normal. Left Ventricular Outflow Tract Name Value Normal LVOT 2D LVOT Diameter 2.0 cm LVOT Doppler LVOT Peak Velocity 113 cm/s LVOT Peak Gradient 5 mmHg LVOT Mean Gradient 3 mmHg LVOT VTI 27 cm LVOT Stroke Volume 82 ml LVOT CO 4.7 l/min LVOT CI 2.3 l/min/m2 Pulmonic Valve Name Value Normal RVOT Doppler RVOT Peak Velocity 72 cm/s RVOT Peak Gradient 2 mmHg PV Doppler PV Peak Velocity 112 cm/s PV Peak Gradient 5 mmHg Mitral Valve Name Value Normal MV Diastolic Function MV E Peak Velocity 75 cm/s MV A Peak Velocity 101 cm/s MV E/A 0.7 MV Decel Time (PW) 261 ms MV Annular TDI MV E/e' (Septal) 12.1 MV E/e' (Lateral) 10.3 MV E/e' (Average) 11.2 Tricuspid Valve Name Value Normal TV Regurgitation Doppler TR Peak Velocity 226 cm/s TR Peak Gradient 20 mmHg Estimated PAP/RSVP RA Pressure 5 mmHg <=5 PA Systolic Pressure 25 mmHg <36 RV Systolic Pressure 25 mmHg <36 Aortic Valve Name Value Normal AV Doppler AV Peak Velocity 185 cm/s AV Peak Gradient 14 mmHg AV Area (Cont Eq Matthew) 1.9 cm2 AV DI (Matthew) 0.61 AV Regurgitation 2D LVOT Area 3.1 cm2 Ventricles Name Value Normal LV Dimensions 2D/MM IVS Diastolic Thickness (2D) 1.0 cm 0.6-1.0 LVID Diastole (2D) 4.6 cm 3.8-5.2 LVIW Diastolic Thickness (2D) 1.1 cm 0.6-0.9 LVID Systole (2D) 3.7 cm 2.2-3.5 LVOT Diameter 2.0 cm LV Mass (2D Cubed) 173.47 g 67.00-162.00 LV Mass Index (2D Cubed) 84 g/m2 43-95 Relative Wall Thickness (2D) 0.49 <=0.42 LV Fractional Shortening/Ejection Fraction 2D/MM LV Fractional Shortening (2D) 21 % 27-45 LV EF (2D Teichholz) 43 % LV Diastolic Volume (4C MOD) 109 ml LV EF (4C MOD) 63 % LV Diastolic Volume (2C MOD) 113 ml LV EF (2C MOD) 67 % LV Diastolic Volume (BP MOD) 111 ml 46-106 LV Diastolic Volume Index (BP MOD) 54 ml/m2 29-61 LV Systolic Volume (BP MOD) 39 ml 14-42 LV Systolic Volume Index (BP MOD) 19 ml/m2 8-24 LV EF (BP MOD) 65 % 54-74 LV Diastolic Length (4C) 8.5 cm LV Systolic Length (4C) 7.1 cm LV Stroke Volume (4C MOD) 69 ml Atria Name Value Normal LA Dimensions LA Volume (4C A-L) 18 ml LA Volume (BP A-L) 25 ml RA Dimensions RA Systolic Major [place] Length (4C) 5.2 cm 2.2-2.8 RA Area (4C) 16.4 cm2 <=18.0 Report Signatures
[2025-05-22] MEDS: PERFLUTREN LIPID MICROSPHERES 1.5 ML VIAL DILUTED TO 10 ML TOTAL VOLUME IV PUSH (11:45)
--- NOTE | 2025-05-22 12:04 | IVDEFINITY ---
Prior to administration of IV Definity the patient was educated on the risks and benefits of the imaging enhancing agent including potential adverse side effects. The patient verbalized understanding. Allergies were verified. No exclusion criteria were identified and at least one of the following inclusion criteria were met: 1) physician request, 2) patient technically difficult to image (per the [place] [employer]chocardi[employer] guidelines of two or more segments not discernable within the apical view), or 3) questionable left ventricular function. ?
== END 2025-05-22 08:44 | disposition home or self-care (01) ==
PROVIDERS: PCP Family Medicine; Visit Provider Internal Medicine Cardiovascular Disease
DX: Z01.810 Encounter for preprocedural cardiovascular examination (principal); I21.29 ST elevation (STEMI) myocardial infarction involving other sites
CPT/HCPCS: 78452; 93017; A9502; C8929; J2785; Q9957

== ENCOUNTER 2025-06-04 09:15 | Outpatient (CLI) | payer MEDICARE, SELFPAY ==
--- OUTSIDE RECORDS SUMMARY | 2025-06-04 09:32 | XMS_ITS | Referral Summary ---
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
--- OUTSIDE RECORDS SUMMARY | 2025-06-04 09:32 | XMS_ITS | Clinical Summary ---
Author Organization [facility] [address] Address [address] [place] [address] Care Team Providers Care Drain Tiler Name Role Phone Haley Stokes MD Primary Care Provider [phone] Social History Tobacco Use Types Packs/Day Years Used Date Smoking Tobacco: Never Assessed Alcohol Use Standard Drinks/Week Comments Yes 0 (1 standard drink = 0.6 oz pur e alcohol) Comments Unknown Sex and Gender Information Value Date Recorded Sex Assigned at Not on file Legal Sex Female 1:[address] TELLER Gender Identity Not on file Sexual Orientation [...] Plan of Treatment Not on file Insurance [place] [employer] [place] Care Teams Drain Tiler Relationship Specialty Start Date End Date Haley Stokes MD PCP - General 02/14/13
--- OUTSIDE RECORDS SUMMARY | 2025-06-04 09:32 | XMS_ITS | Clinical Summary ---
Author Organization [employer] [place] Address [address] [place] [address] Care Team Providers Care Pet Adoption Counselor Name Role Phone Haley Stokes MD Primary Care Provider [phone] Medications No known medications Encounters Date Type Department Care Team Description 05/23/2025 Transcribe Orders Central Test Scheduling [address] [place] [address] Haley Stokes MD Asymptomatic menopausal state (Primary Dx) 05/23/2025 Transcribe Orders Central Test Scheduling [address] [place] [address] Haley Stokes MD Visit for screening mammogram (Primary Dx) 05/23/2025 Transcribe Orders Central Test Scheduling [address] [place] [address] Haley Stokes MD Visit for screening mammogram (Primary Dx) from Last 3 Months Family History Medical [...] Comments Blood Pressure 120/68 01/18/2024 2:13 PM DIRECTOR COMPLIANCE Pulse 71 01/18/2024 2:13 PM DIRECTOR COMPLIANCE Temperature - - Respiratory Rate 18 01/18/2024 2:13 PM DIRECTOR COMPLIANCE Oxygen Saturation 97% 01/18/2024 2:13 PM DIRECTOR COMPLIANCE Inhaled Oxygen Concentration - - Weight - - Height - - Body Mass Index - - Plan of Treatment Upcoming Encounters Date Type Department Care Team (Late st Contact Info) Description 06/05/2025 3:00 PM CDT Hospital Encounter [facility] [address] [place] [address] Haley Stokes MD [address] [place] [address] 06/05/2025 4:[address] [facility] [address] [place] [address] Haley Stokes MD [address] [place] [address] Health Maintenance Due Date Last Done Comments DTAP/TDAP/TD VACCINES (1 - Tdap) 1976 FIT-DNA Q 3 years 2002 FIT/FOBT Q 1 year 2002 Flex Sig/CT Colonography Q 5 years 2002 PNEUMOCOCCAL VACCINE 50+ YEA RS (1 of 1 - PCV) 2007 ZOSTER VACCINE (1 of 2) 2007 OSTEOPOROSIS SCREENING 2022 COLORECTAL SCREENING 11/20/2022 11/20/2012 Colorectal Cancer Screening 11/20/2022 [place]age ([place]) Preventative Visit/Annual Wellness Visit 11/21/2024 BREAST CANCER SCREENING 01/13/2025 01/13/20 24, 12/15/2023, 10/12/2021, Additional history exists INFLUENZA VACCINE (#1) 2025 RSV VACCINE (60+ or ) (1 - 1-dose 75+ series) 2032 Medical Devices Implanted Type Area Dough Mixer Operator Device Identifier Shelf Expiration Date Model / Serial / Lot Clip-01/18/2024 Implanted:Qty: 1 on 01/18/2024 by Darryl Peña MD Clip Right: Breast 11/17/2026 [id number] / / [id number] Description:ribbon marker Procedures Procedure Name Priority Date/Time Associated Diagnosis Comments MAMMO 3D NEGRITO DIAGNOSTIC BILAT W OR WO CAD Routine 01/13/2024 2:10 PM DIRECTOR COMPLIANCE Abnormal mammogram from Last 3 Months or Most Recently Relevant to Health Maintenance Results * (ABNORMAL) MAMMO 3D NEGRITO DIAGNOSTIC BILAT W OR WO CAD (01/13/2024 2:10 PM DIRECTOR COMPLIANCE) Anatomical Region Laterality Modality Breast Bilateral Mammography 01/13/2024 2:10 PM DIRECTOR COMPLIANCE Impressions 01/13/2024 3:36 PM DIRECTOR COMPLIANCE IMPRESSION: Small cysts in the left breast at 6:00. Hypoechoic area that appears to be connected to a duct in the right breast at 12:00. RECOMMENDATIONS: Ultrasound-guided aspiration with possible biopsy right breast. DICTATION LOCATION: [facility] Narrative 01/13/2024 3:36 PM DIRECTOR COMPLIANCE EXAM: BILATERAL DIAGNOSTIC FULL-FIELD DIGITAL MAMMOGRAPHY WITH CAD WITH 3D TOMOSYNTHESIS AND BILATERAL FOCUSED ULTRASOUND DATE: 01/13/2024 2:10 PM HISTORY: Abnormal screening mammogram. TECHNIQUE: Spot tomographic and lateral imaging both breasts with focused ultrasound. COMPARISON: 2023, 2018 BREAST COMPOSITION: There are scattered areas [...] imaging both breasts with focused ultrasound. COMPARISON: 2018 BREAST COMPOSITION: There are scattered areas [...] with possible biopsy right breast. DICTATION LOCATION: [facility] us Haley Stokes MD MAMMO ORDERABLES Final Result from Last 3 Months or Most Recently Relevant to Health Maintenance Insurance [employer] PPO MCR Care Teams Pet Adoption Counselor Relationship Specialty Start Date End Date Haley Stokes MD [facility] [place] [address] PCP - General Family Practice 02/02/19
[2025-06-04 10:04] LABS: INR 1.0; Prothrombin Time 13.5 Seconds (11.1-14.7)
[2025-06-04 10:05] LABS: Partial Thromboplastin Time 28.4 Seconds (22.3-36.8)
[2025-06-04 12:15] LABS: Anion Gap 9 mmol/L (4-12); Blood Urea Nitrogen 32 mg/dL (7-17); Calcium 9.7 mg/dL (8.4-10.2); Carbon Dioxide 31 mmol/L (22-30); Chloride 99 mmol/L (98-107); Estimated Glomerular Filt Rate 52; Glucose 109 mg/dL (65-110); Potassium 3.4 mmol/L (3.4-5.0); Sodium 139 mmol/L (137-145)
== END 2025-06-04 09:16 | disposition home or self-care (01) ==
LOC: ANHSURGERY 09:18
PROVIDERS: Anesthesiology; PCP Family Medicine; Visit Provider Orthopaedic Surgery
DX: E11.22 Type 2 diabetes mellitus with diabetic chronic kidney disease (principal); N18.30 Chronic kidney disease, stage 3 unspecified
CPT/HCPCS: 36415; 80048; 85610; 85730

== ENCOUNTER 2025-06-10 00:53 | Day surgery (SDC) | payer MEDICARE, SELFPAY ==
[2025-04-01 14:05] VITALS: BMI 33.3
--- NOTE | 2025-04-01 14:41 | PC.NURSE ---
Addendum entered by Nia Melendez RN 06/03/25 11:10: Pt called and no changes in status , had her PREOP Clearance done and is now reset for below date and times, went over instructions again w pt and questions answered. Preop Testing to be repeated due to dates Pt instructions now as below- REVISED- Report to the Outpatient Waiting Room, entrance under the green pavilion located off [facility], at time ___12:30PM____ on date ___06/10/25____. Planned Procedure Time: ___2:30PM .? Time changes happen often and if your time is changed the preop area will call you the afternoon before. - You and your visitor will be asked to self-screen and do not enter if you have any COVID symptoms. Please call surgeon if you need to reschedule. - A mask is optional within the hospital at this time. Patients may have clear liquids (water, carbonated beverages, clear teas, apple juice) until 3 hours prior to surgery (11:30AM) with a maximum of 20 ounces. - No food from midnight until time of surgery and no smoking, or chewing tobacco (or any form of nicotine). No chewing gum, candy or mints. Take only the following medications with a SIP of water on the morning of surgery: ____METOPROLOL. MAY USE ALBUTEROL INHALER NEEDED. DO NOT STOP ANY OF YOUR OTHER PRESCRIPTION MEDICATIONS PRIOR TO SURGERY EXCEPT THE FOLLOWING Hold all vitamins and supplements for 3 days per anesthesiologist. Date of last dose is 06/06/25 Medications to discontinue per physician ____HOLD IBUPROFEN, MOTRIN, EXCEDRIN, ASPIRIN CONTAINING PRODUCTS (ALL NSAIDS EXCEPT CELEBREX) 7 DAYS PRE-OP PER DR MATIAS Date to take last dose 06/01/25 Original Note: Report to the Outpatient Waiting Room, entrance under the green pavilion located off [facility], at time ___12:00PM____ on date ___04/12/25____. Planned Procedure Time: ___2:00PM .? Time changes happen often and if your time is changed the preop area will call you the afternoon before. - You and your visitor will be asked to self-screen and do not enter if you have any COVID symptoms. Please call surgeon if you need to reschedule. - A mask is optional within the hospital at this time. Patients may have clear liquids (water, carbonated beverages, clear teas, apple juice) until 3 hours prior to surgery (11:00AM) with a maximum of 20 ounces. - No food from midnight until time of surgery and no smoking, or chewing tobacco (or any form of nicotine). No chewing gum, candy or mints. Take only the following medications with a SIP of water on the morning of surgery: ____METOPROLOL. MAY USE ALBUTEROL INHALER NEEDED. DO NOT STOP ANY OF YOUR OTHER PRESCRIPTION MEDICATIONS PRIOR TO SURGERY EXCEPT THE FOLLOWING Hold all vitamins and supplements for 3 days per anesthesiologist. Medications to discontinue per physician ____HOLD IBUPROFEN(ALL NSAIDS EXCEPT CELEBREX) 7 DAYS PRE-OP PER DR MATIAS Date to take last dose 04/04/25 Please no make-up, nail yakut, hairspray, perfume, deodorant, or body powder the day of surgery.? No jewelry (including any body piercings) or valuables the day of surgery, leave them at home.? Please take a shower or bath the night before, or the morning of, surgery with an antibacterial soap.? Wear comfortable, loose fitting clothing.? - Jewelry must be removed prior to entering the operating room.? Rings and piercings that are not removed may be cut off. - The hospital will not accept responsibility for valuables.? - Please leave all valuables, including medications, at home the day of surgery. If you are going home after surgery, a licensed taxicab driver must drive you home.? - NO public transportation without another adult if you receive anesthesia. - We recommend that an adult stay with you for 24 hours following discharge. - We also recommend that you do not drive, make important decision, drink alcoholic beverages, or take any drugs that were not prescribed by your health care provider for at least 24 hours after your discharge time. Follow any additional instructions given to you from your surgeon. Telephone instructions given to ____PATIENT and asked if any additional questions and then verbalized understanding. Patient advised to call surgeon office or pre surgery nurse liaison [phone] if any additional questions.
[2025-06-03 10:58] VITALS: BMI 33.3
[2025-06-10] VITALS (8 sets, daily range): BP systolic 103–155; BP diastolic 51–82; PULSE 56–65; RESP 12–20; TEMP 36.4–36.5; O2SAT 94–97
--- OUTSIDE RECORDS SUMMARY | 2025-06-10 00:56 | XMS_ITS | Clinical Summary ---
Author Organization [facility] Address [address] [facility] [place] [address] Care Team Providers Care Manager Front Name Role Phone Haley Stokes MD Primary Care Provider [phone] Medications No known medications Encounters Date Type Department Care Team Description 06/05/2025 3:01 PM CDT - 06/05/2025 11:59 PM CDT Hospital Encounter [facility] [address] [place] [address] [address] [place] [address] Haley Stokes MD Discharge Disposition: Home or Self Care 06/05/2025 3:00 PM CDT - 06/05/2025 11:59 PM CDT Hospital Encounter [facility] [address] [place] [address] Haley Stokes MD Discharge Disposition: Home or Self Care 05/23/2025 Transcribe Orders Central Test Scheduling [address] [place] [address] Haley Stokes MD Asymptomatic menopausal state (Primary Dx) 05/23/2025 Transcribe Orders Central Test Scheduling [address] [place] [address] Haley Stokes MD Visit for screening mammogram (Primary Dx) 05/23/2025 Transcribe Orders Central Test Scheduling [address] [place] [address] Haley Stokes MD Visit for screening mammogram [...] Comments Blood Pressure 120/68 01/18/2024 2:13 PM PIPELINE ENGINEER Pulse 71 01/18/2024 2:13 PM PIPELINE ENGINEER Temperature - - Respiratory Rate 18 01/18/2024 2:13 PM PIPELINE ENGINEER Oxygen Saturation 97% 01/18/2024 2:13 PM PIPELINE ENGINEER Inhaled Oxygen Concentration - - Weight - [...] 2007 ZOSTER VACCINE (1 of 2) 2007 COLORECTAL SCREENING 11/21/2022 11/21/2012, 11/20/20 Colorectal Cancer Screening 11/21/2022 [place] Preventative Visit/Annual Wellness Visit 11/21/2024 INFLUENZA VACCINE (#1) 2025 BREAST CANCER SCREENING 06/05/2026 06/05/20 25, 01/13/2024, 12/15/2023, Additional history exists OSTEOPOROSIS SCREENING 06/05/2030 06/05/2025 RSV VACCINE (60+ or ) (1 - 1-dose 75+ series) 2032 Medical Devices Implanted Type Area Hansard Reporter Device Identifier Shelf Expiration Date Model / Serial / Lot Clip-01/18/2024 Implanted:Qty: 1 on 01/18/2024 by Darryl Peña MD Clip Right: Breast 11/17/2026 [id number] / / [id number] Description:ribbon marker Procedures Procedure Name Priority Date/Time Associated Diagnosis Comments XR DEXA BONE DENSITY AXIAL 1 OR MORE SITES Routine 06/05/2025 4:00 PM CDT Asymptomatic menopausal state MAMMO 3D NEGRITO SCREEN BILAT W OR WO CAD Routine 06/05/2025 3:29 PM CDT Visit for screening mammogram from Last 3 Months Results * XR DEXA BONE DENSITY AXIAL 1 OR MORE SITES (06/05/2025 4:00 PM CDT) Anatomical Region Laterality Modality Computed Radiogr aphy 06/05/2025 4:00 PM CDT Impressions 06/05/2025 4:40 PM CDT FINDINGS/IMPRESSION: Normal bone density with a lowest T score of -0.4, previously 0.1. Fracture risk is low. FRAX: 10 year probability of major osteoporotic fracture is 6.8 %. 10 year probability of hip fracture is 0.4 %. Please refer to the full report available in [facility] under the PACS Images tab. If a faxed copy is needed, please call [phone]. DICTATION LOCATION: [facility] Narrative 06/05/2025 4:40 PM CDT EXAMINATION: XR DEXA BONE DENSITY AXIAL 1 OR MORE SITES DATE: 06/05/2025 4:00 PM INDICATION: Postmenopausal Procedure Note Familia Ruffin MD - 06/05/2025 EXAMINATION: XR DEXA BONE DENSITY AXIAL 1 OR MORE SITES DATE: 06/05/2025 4:00 PM INDICATION: Postmenopausal FINDINGS/IMPRESSION: Normal bone density with a lowest T score of -0.4, previously 0.1. Fracture risk is low. FRAX: 10 year probability of major osteoporotic fracture is 6.8 %. 10 year probability of hip fracture is 0.4 %. Please refer to the full report available in [facility] under the PACS Images tab. If a faxed copy is needed, please call [phone]. DICTATION LOCATION: [facility] Haley Stokes MD DIAGNOSTIC IMAGING ORDERABLES Fi nal Result * MAMMO 3D NEGRITO SCREEN BILAT W OR WO CAD (06/05/2025 3:29 PM CDT) Anatomical Region Laterality Modality Breast Bilateral Mammography 06/05/2025 3:29 PM CDT Impressions 06/05/2025 4:22 PM CDT IMPRESSION: Left breast focal asymmetry and calcifications RECOMMENDATIONS: Left breast diagnostic mammogram with spot compression and spot magnification views. DICTATION LOCATION: [facility] Narrative 06/05/2025 4:22 PM CDT MAMMO 3D NEGRITO SCREEN BILAT W OR WO CAD DATE: 06/05/2025 3:29 PM HISTORY: Routine screening. TECHNIQUE: Full-field digital craniocaudal and mediolateral oblique projections of both breasts were obtained. Low-dose full-field digital breast tomosynthesis examination was performed with 3D acquisitions. Examination is read in conjunction with computer aided detection. COMPARISON: Prior mammograms dating back to 09/22/2021 BREAST COMPOSITION: The breasts are heterogeneously dense, which may obscure small masses. FINDINGS: There is a focal asymmetry with calcifications in the upper outer left breast middle depth. There is no new suspicious abnormality in the right breast. OVERALL FINAL ASSESSMENT: BI-RADS CATEGORY 0: Incomplete, need additional imaging evaluation. Haley Stokes MD MAMMO ORDERABLES Final Result from Last 3 Months Insurance [facility] PPO MCR Care Teams Manager Front Relationship Specialty Start Date End Date Haley Stokes MD [address] [place] [address] PCP - General Family Practice 02/02/19
--- OUTSIDE RECORDS SUMMARY | 2025-06-10 00:56 | XMS_ITS | Referral Summary ---
Author Organization [facility] [address] Address [address] [place] [address] Care Team Providers Care Biology Lecturer Name Role Phone Haley Stokes MD Primary Care Provider [phone] Social History Tobacco Use Types Packs/Day Years Used Date Smoking Tobacco: Never Assessed Alcohol Use Standard Drinks/Week Comments Yes 0 (1 standard drink = 0.6 oz pur e alcohol) Comments Unknown Sex and Gender Information Value Date Recorded Sex Assigned at Not on file Legal Sex Female 1:26 AM DIRECTOR RADIO NEWS Gender Identity Not on file Sexual Orientation [...] Plan of Treatment Not on file Insurance [employer] [place] Care Teams Biology Lecturer Relationship Specialty Start Date End Date Haley Stokes MD PCP - General 02/14/13
--- OUTSIDE RECORDS SUMMARY | 2025-06-10 00:56 | XMS_ITS | Clinical Summary ---
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
--- OUTSIDE RECORDS SUMMARY | 2025-06-10 00:56 | XMS_ITS | Data Portability ---
Author Organization [facility], Main Office Address [address] [place] [address] Assessment No assessment recorded. Plan of Treatment [...] By Organization Details Last Modified Time 01/05/2023 [id number] She will follow up with me only as needed. On today's visit I spent a total of 40 minutes prepping for her visit (reviewing shared records), [id number] with her and documenting. [email or web address] Not available 02/11/2023 16:43:53 Reason for Referral None Reported. Problems Name Problem SNOMED Code Status Onset Date Resolution Date Notes Provider Name and Address Organization Details Recorded Time Hyperlipid emia 83847089 Active 2022 Poornima Lange MD [address] [place] [address],[address], [address] [place] [address] [facility] 3 16:42:17 Essential hypertensi on 83440180 Active 2022 Poornima Lange MD [address] [place] [address],[facility] [address], [place], [address] [place] [address] [facility] 3 16:42:30 Screening for malignant neoplasm of colon Active 2022 Poornima Lange MD [address] [place] [address],[address], [place], [address], [facility] 3 16:42:41 External hemorrhoid s 95700561 Active 2022 Poornima Lange MD [address] [place] [address],[address], [place], [address], [facility] 3 16:42:55 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 Procedures Surgical History Date Name Laterality Status Provider Name and Address Organization Details Recorded Time 01/05/20 Anoscopy completed Poornima Lange MD [address] [place] [address],[address], [place], [address], [facility] 02/11/2023 16:33:57 02/20/20 19 Date of Last Mammogram completed basia wilson [facility] 01/05/2023 13:39:05 11/21/19 13 Colonoscopy completed Poornima Lange MD [address] [place] [address],[address], [place], [address], [facility] 02/11/2023 16:29:11 11/21/18 91 combined anteroposterior colporrhaphy completed Poornima Lange MD [address] [place] [address],[address], [place], [address], [facility] 02/11/2023 16:29:43 11/21/18 91 total hysterectomy via vaginal approach completed Poornima Lange MD [address] [facility],[address], [place], [address], [facility] 02/11/2023 16:31:01 Imaging Results None recorded. Procedure Notes None recorded. Medical Equipment None Reported. Allergies Allergen ID Allergen Name Allergen Category Reaction Reaction Severity Criticality Documentation Date Start Date Code Code System Note Provider Name and Address Organization Details Recorded Time 7387 tetracycl ine medicatio n Not available Not available Not available 01/05/2023 13062 RxNorm basianeetu [facility], [facility] [place] 13:09:23 Medications Name Sig Start Date Stop [...] available 2022 13:35:11 Medical History Condition Response Arthritis/Gout Y Headaches/Migraines Y Cataracts Y High Cholesterol Y Hypertension Y Gynecological History Statement/Question Response [...] SNOMED-CT Code Diagnosis ICD10 Code Diagnosis Note [id number] Poornima Lange MD Main Office [address] [place] [address] 01/05/2023 12:25:07 01/05/2023 13:54:04 Pile easily reducible [id number] K64.1 I discussed hemorrhoid s in general [...] hurting her. Female pel kirsten floor dysfunction [id number] M99.05 I d/w her that she has [...] shooting for daily BM's that are soft (Barnard Scale type 4). Once she figures out what dose works for her she should take it daily and forever. External hemorrhoids [id number] [address]115 K64.4 She now understand s the only [...] . Screening for malignant neoplasm of colon 758282186 Z12.11 She is aware that she is due for a c-scope and states she will get this scheduled through her PCP. Essential hypertension [id number] I10 She takes her medication and follows routinely with her PCP. Hyperlipidemia 36042208 E78.5 She takes her medication and follows routinely with her PCP. Health Concerns Section Related Observation LastModified by Organization Detai ls LastModified Time None Recorded Concern Status LastModified by Organization Details LastModified Time None Recorded Advance Directives Directive Y: Payers Insurance Date Sequence Insurance Name Policy Number Policy Costello Covered Member ID Costello Member ID Guarantor Name 02/11/2023 1 [place] [id number] Neetu Hendricks [id number] Lashonda Hendricks Notes Date Note Type [...] she stopped them. Poornima Lange MD [address] [facility],[address], [place], [address], [facility] 02/11/2023 16:46:27 OBGyn Episode No OBEpisode recorded.
[2025-06-10] MEDS: KETOROLAC 15 MG/ML VIAL (*BKC) IV PUSH (13:15)
[2025-06-10] MEDS: LACTATED RINGERS 1,000 ML 30 ML IV CONT ×2 (13:15→16:22)
--- NOTE | 2025-06-10 14:00 | WPDHPUPDATE1 ---
History and Physical Update Update Date/Time: 06/10/25 14:00 History and Physical has been reviewed, including an updated exam of the patient. There are NO changes in the patient's condition. Risks, benefits, and alternatives have been discussed and questions answered. Patient agrees to proceed with procedure.
--- NOTE | 2025-06-10 14:47 | WPDANESEPPF ---
Anes - Initial Pre Proc Eval Procedure: Operation Date: 06/10/25 14:30 Proposed Procedures p Right Shoulder Arthroscopic Rotator Cuff Repair with Subacromial Decompression, Proceed as Indicated - Steve Palmer MD Date/Time: 06/10/25 14:47 Surgeon: Steve Palmer MD Pre Op Diagnosis: Rt Partial Rot Cuff Tear, Impingement Syndrome Patient Data Age: 70 Gender: F Height: 1.65 m Weight: 90 kg Last Vital Signs Temp 36.4 C 06/10/25 12:40 Pulse 65 06/10/25 12:40 Resp 20 06/10/25 12:40 BP 130/69 06/10/25 12:40 Pulse Ox 97 06/10/25 12:40 O2 Del Method Room Air 06/10/25 12:40 Allergies Allergy/AdvReac Type Severity Reaction Status Date / Time tetracycline AdvReac Unknown NAUSEA/VOMI Verified 06/07/25 08:24 TING Home Medications ?Medication ?Instructions ?Recorded ?Confirmed ?Type albuterol sulfate 90 mcg/actuation 1 puff inhalation Q4H PRN 10/24/23 06/10/25 Rx aerosol inhaler shortness of breath or wheezing #8.5 grams celecoxib 200 mg capsule (Celebrex) 200 mg PO .EVERY OTHER DAY #90 caps 11/12/24 06/10/25 Rx hydrochlorothiazide 25 mg tablet 25 mg PO DAILY #90 tabs 11/12/24 06/10/25 Rx omeprazole 20 mg capsule,delayed 20 mg PO DAILY #90 caps 11/12/24 06/10/25 Rx release simvastatin 20 mg tablet (Zocor) See Rx Instructions .Route 11/12/24 06/10/25 Rx .COMPLEX #90 tabs lisinopril 2.5 mg tablet 2.5 mg PO DAILY #90 tabs 12/27/24 06/10/25 Rx acetaminophen 500 mg tablet 1,000 mg PO Q6H PRN pain 04/01/25 06/10/25 History (Acetaminophen Extra Strength) baclofen 10 mg tablet 10 mg PO QHS PRN spasms 04/01/25 06/07/25 History metoprolol tartrate 100 mg tablet 100 mg PO Q12H #180 tabs 04/07/25 06/10/25 Rx benzonatate 200 mg capsule 200 mg PO TID PRN cough #30 caps 04/08/25 06/07/25 Rx triamcinolone acetonide 0.1 % 1 applic topical BID #80 grams 04/30/25 06/07/25 Rx topical cream fluticasone propionate 50 1 spray intranasal BID #48 grams 05/28/25 06/10/25 Rx mcg/actuation nasal spray,suspension cetirizine 10 mg capsule (Zyrtec) 10 mg PO DAILY PRN allergy symptoms 06/04/25 06/10/25 History Patient hx anesthesia problems: none Family hx anesthesia problems: none Results Review: All pre-operative results and documents have been reviewed as part of the pre-operative evaluation. [facility] Past Medical History Medical History Poison mandeep Shoulder pain, right (~10/08/24) Diabetes Dysphagia LBBB (left bundle branch block) Colon cancer screening Chronic renal insufficiency, stage III (moderate) Essential hypertension Mixed hyperlipidemia Personal history of colonic polyps Transient cerebral ischemia Normal colonoscopy Migraine Surgical History Surgical History History of partial hysterectomy Family History Family History Sibling Diabetes mellitus Family history of throat cancer Mother Cerebrovascular accident Other Family history of alcoholism Family history of coronary artery disease Family history of malignant neoplasm Family history of malignant neoplasm of breast in first degree relative Family history of malignant neoplasm of uterus Hypertension Social History Social History Smoking status: Never smoker Second hand tobacco smoke exposure: Yes Alcohol intake: current Drinks per week: 1 Substance use: never Lack of Transportation: No Lack of Food: Never True Current Housing: I Have Housing Concerned About Future Housing: No Difficulty Paying Gas/Electric Bills: No Difficulty Paying for Meds: No Currently Unemployed: No Education: Associate Degree Difficulty w/ Childcare or Family Care: No Living arrangements: with family Additional living arrangements comments: SPOUSE & SON Gender identity (if verbalized by the patient): Female Sexual Orientation (if Verbalized by the Patient): Straight or Heterosexual Spiritual care concerns: No Agree to blood products: Yes Anes - Eval Final PreProcedure Day of Procedure 06/10/25 14:47 Patient weight: obese Heart: regular rate and rhythm Lungs: clear to auscultation Airway: Mallampati scale class III Neurological: alert and oriented Last oral intake: >/= 8 hours ASA classification: III Emergent: no Anesthetic plan: proceed Anesthesia type and monitoring: general ETT and standard monitoring Results Review: All pre-operative results and documents have been reviewed as part of the pre-operative evaluation. Informed Consent: The patient's anesthetic plan and its attendant risks and benefits were discussed with the patient/family/POA. Questions were solicited and answers provided to the satisfaction of the patient/family/POA.
[2025-06-10] MEDS: ceFAZolin 2 GM in SODIUM CHLORIDE 0.9% IV 50 ML 100 ML IVPB (14:56)
[2025-06-10] MEDS: BUPIVACAINE/EPINEPHRINE 0.5% 50 ML VIAL 30 ML INFILTRATE (15:36)
[2025-06-10] MEDS: EPINEPHrine HCL INJ 1 MG/ML AMPUL IRRIGATION (16:00)
--- NOTE | 2025-06-10 16:22 | W.PM.PROC2 ---
Procedure Note - Detailed Date of Procedure 06/10/25 Pre-op Diagnosis Rt Partial Rot Cuff Tear, Impingement Syndrome Post-op Diagnosis Other (1. Partial-thickness bursal rotator cuff tear 2. Degenerative SLAP tear 3. Impingement syndrome) Procedure Performed Right shoulder arthroscopic 1. Extensive debridement including the superior labrum and subacromial bursa 2. Subacromial decompression with acromioplasty. Surgeon Steve Palmer MD Anesthesia General Findings Low-grade bursal partial-thickness tear proximally 15%. Light debridement performed. Obvious impingement on type 3 subacromial spur. Spur was removed with the arthroscopic bur. Bursal tissue was prolific and excised. The glenohumeral articular cartilage was healthy and normal. The anterior superior labrum showed moderate fraying which was treated debridement. Sub scapularis was normal. The articular supraspinatus and infraspinatus was normal. There was mild capsulitis and hyperemia without contracture. Description of Procedure Preoperative antibiotics were given. The patient was brought to the operating room. Careful positioning in the beach chair was accomplished. The head neck were carefully positioned. The shoulder was prepped and draped in the usual sterile fashion. Examination under anesthesia performed. No abnormal stiffness or findings. Standard posterior and anterior arthroscopic portals were established. The articular surfaces were healthy. There was an anterior superior labral tear which was treated with gentle debridement. No instability or other findings. The rotator cuff was healthy on the articular side. There was mild capsulitis and hyperemia was significant. No significant contracture. Attention was turned to the subacromial space. The bursa was quite thickened. A complete bursectomy was performed. An accessory lateral portal was created. The acromion was clearly visualized. Significant downsloping prominence of the anterolateral acromion was confirmed which coincided with the MRI findings. There was fraying in this area of the anterior supraspinatus and rotator interval area. Estimated at less than 15%. No further repair was indicated. Gentle debridement was performed. The coracoacromial ligament was released. Careful acromioplasty was performed with the arthroscopic bur.. Loose bone fragments were carefully irrigated from the joint. The arthroscopic instruments were removed. The wounds were closed with interrupted 4-0 Monocryl suture followed by Steri-Strips. A sterile dressing was applied with a sling. The patient was extubated and brought to the recovery room in stable condition. There were no complications. Estimated Blood Loss 10 Drains No Packing No Pathology None sent Complications No immediate complications Condition Stable Disposition PACU [facility] Billing Surgery - Charge Forward: Surgery Billing
[2025-06-10] MEDS: fentaNYL CITRATE INJ (*CRX) 100 MCG/2 ML VIAL 25 MCG IV PUSH ×2 (16:49→17:18)
[2025-06-10] MEDS: oxyCODONE HCL (*CRX) 5 MG TAB IR PO (17:41)
== END 2025-06-10 18:25 | disposition home or self-care (01) ==
PROVIDERS: PCP Family Medicine; Visit Provider Orthopaedic Surgery
PROC: (CPT 29805; principal; 2025-06-10 14:30)
DX: S46.011A Strain of muscle(s) and tendon(s) of the rotator cuff of right shoulder, initial encounter (principal); S43.431A Superior glenoid labrum lesion of right shoulder, initial encounter; M75.41 Impingement syndrome of right shoulder; X50.0XXA Overexertion from strenuous movement or load, initial encounter; Y93.54 Activity, bowling; E66.9 Obesity, unspecified; Z68.33 Body mass index [BMI] 33.0-33.9, adult
CPT/HCPCS: 29826; 29823; J0690; A4565; A9270; J0166; J1885; J2003; J2250; J2405; J2704; J3010; J7120

== ENCOUNTER 2025-09-25 10:45 | Outpatient (RCR) | payer MEDICARE, SELFPAY ==
[2025-07-30 13:47] VITALS: BMI 33.7
[2025-07-30 14:23] VITALS: BMI 33.7
--- NOTE | 2025-07-30 15:15 | PCDIET ---
07/30/25: MNT follow up completed.
[2025-09-25 10:50] VITALS: BMI 33.7
--- NOTE | 2025-09-25 14:51 | PCDIET ---
09/25/25: Final MNT follow up for 2024 completed. Thank you for referring [facility]. Please re-refer prn and annually.
== END 2025-10-21 10:49 | disposition home or self-care (01) ==
LOC: ANHDMC 10:45
PROVIDERS: PCP Family Medicine; Visit Provider Family Medicine
DX: E11.9 Type 2 diabetes mellitus without complications (principal); Z71.3 Dietary counseling and surveillance
CPT/HCPCS: 97803